=== PATIENT | female | born 1970 | race Caucasian/White ===

== ENCOUNTER 2023-04-07 13:42 | Emergency (ER) | payer BC, OTHER ==
[2023-04-07 13:54] VITALS: BP 117/64; PULSE 58; RESP 18; TEMP 98; BMI 24.9
== END 2023-04-07 15:12 | disposition home or self-care (01) ==
LOC: JER 13:42
DX: H57.89 Other specified disorders of eye and adnexa (principal); H01.003 Unspecified blepharitis right eye, unspecified eyelid; H43.391 Other vitreous opacities, right eye
CPT/HCPCS: 82962; 99282-25